=== PATIENT | male | born 1970 | race Caucasian/White ===

== ENCOUNTER 2025-02-12 17:11 | Emergency (ER) | payer SELFPAY ==
[~2025-02-12] VITALS: Ht 177.8 cm; Wt 113.4 kg
[2025-02-12] MEDS ORDERED: Calcium Gluconate 10% 100 MG/ML INJ ONE (17:25)
[2025-02-12 17:41] LABS: Calcium, Ionized (POC) 1.28 mmol/L (1.10-1.46); Chloride (POC) 112 mmol/L (98-108); Creatinine (POC) 1.6 mg/dL (0.6-1.3); Glucose (ISTAT POC) 340 mg/dL (70-99); Hematocrit (POC) 34.0 % (36.0-53.0); Hemoglobin (POC) 11.6 g/dL (12.0-17.5); Potassium (POC) 5.3 mmol/L (3.5-5.5); Sodium (POC) 142 mmol/L (135-148); Total CO2 (POC) 18 mmol/L (21-32)
[2025-02-12] MEDS ORDERED: Sodium Bicarb 8.4% 50 mEq Syringe IV ONE (19:37)
== END 2025-02-12 21:58 ==
LOC: ER 17:11 → EDSEX 17:11 → EDBD 17:11 → ER 21:58
PROVIDERS: Student in an Organized Health Care Education/Training Program
DX: I46.9 Cardiac arrest, cause unspecified (principal); Z59.00 Homelessness unspecified
CPT/HCPCS: 80047; 85014; 92950; 96374-59; 96375-59; 99285-25; J0165; J0612